=== PATIENT | male | born 1970 | race Caucasian/White ===

== ENCOUNTER 2018-02-22 23:12 | Emergency (ER) | payer MEDICARE, SELFPAY ==
[2018-02-22 23:13] VITALS: BP 143/72; PULSE 123; RESP 17; TEMP 37.5; O2SAT 94; BMI 26.8
--- NOTE | 2018-02-22 23:19 | ED.RN ---
RN CALLED FOR EKG, PULLED OLD EKG'S FOR
--- NOTE | 2018-02-22 23:29 | RAD_ITS ---
STUDY: X-RAY - ACUTE ABDOMINAL SERIES REASON FOR EXAM: Male, 47 years old. Abdominal pain. Chest pain. TECHNIQUE: Single view of the chest. Supine, 1 view(s) of the abdomen were obtained. COMPARISON: Chest x-ray 10/27/2017. CT scan abdomen and pelvis 05/19/2017. FINDINGS: The lungs are mildly underexpanded. There is relative elevation of right hemidiaphragm. There is no demonstrated pulmonary infiltrate. Normal size heart. Normal mediastinum and lety. Normal visualized pulmonary arteries. Normal visualized aortic arch and descending thoracic aorta. There is a non-specific bowel gas pattern. The soft tissue structures of the abdomen and pelvis are unremarkable. There are surgical clips overlying the left mid and upper abdomen. Normal visualized osseous structures. RAD/Acute Abdomen Inc Chest IMPRESSION: No evidence for acute cardiopulmonary pathology. Nonspecific bowel gas pattern. Electronically Signed: Dallas Green MD at 1:16 EDT , Service support ,
--- NOTE | 2018-02-22 23:31 | ED.DCSUM_ITS ---
- ER Visit Summary Date of Service: 02/22/18 Chief Complaint: [] Abdominal pain History of Present Illness: The patient is a 47 M patient stated that since noon after he ate lunch his abdomen feels full and distended. He started getting some pressure sensation in his abdomen since lunch. Sometimes he gets radiating pains from his abdomen upper nose chest. No significant chest pain by itself. It is more abdominal pain per patient. Relieved by nothing. No home treatment. No nausea vomiting. No diarrhea. Physical Examination: [] Vital signs reviewed General: Well-nourished well-developed Head: Normocephalic atraumatic Eyes: Pupils equal round and reactive to light extraocular movements intact ENT: TMs clear no hemotympanum no trauma Neck: Nontender full range of motion Cardiovascular: Regular tachycardia with normal rhythm no murmurs normal S1-S2 Respiratory: No distress clear to auscultation bilaterally chest nontender Abdomen: Soft nontender nondistended normal bowel sounds no masses Back: Nontender no CVA tenderness Extremities: Nontender active range of motion ?4 extremities no trauma Skin: Normal color no trauma Neuro alert oriented cranial nerves II through XII intact normal strength sensation reflexes Test Results: [] Emergency Department Course and Treatment: [] Given IV Zofran and morphine. Lab work and abdominal x-ray with chest x-ray obtained. CBC is normal except white count 22,000 without left shift. He has chronic leukocytosis. Prior numbers are 16,000, 20,000, 17,000. Chemistries normal except sodium 128 down from 144. Chloride 93. Creatinine 1.3. Liver function tests are normal except ALT of 63 AST is 79 alk phos of 164. These are chronically elevated. Lipase is 646. Troponin negative. Patient given IV morphine and Zofran with good relief of symptoms. His abdominal exam is benign. No tenderness over the pancreas. He drank 2 sodas. He accidentally pulled his IV out. He was given a soapsuds enema as he has not had a bowel movement for a week. His abdominal x -ray showed stool filled colon otherwise nothing acute. He had one loose bowel movement. He will be discharged with vital mag citrate. I do not think he has a pancreatitis. He is not double the value. He has no tenderness nausea or vomiting. I feel he can be discharged. Abdominal fullness I think he is having is secondary to constipation. He drinks 2 sodas in the department. He will continue drinking fluids. Treatment Plan: [] Disposition: [] Impression: [] Abdominal pain and fullness with constipation Chronic leukocytosis Dehydration This note was generated with [email or web address] dictation software. It may contain incorrect words, spelling, and punctuation that were not noted in review of the chart prior to signing ED Disposition - Plan for ED Patient: Chief Complaint: Chest Pain Referrals: Pavan Strauss MD [Primary Care Provider] -
[2018-02-22] MEDS: Morphine 4 MG/ML Syringe IV (23:40)
[2018-02-22] MEDS: Ondansetron 4 MG/2 ML Vial IV (23:40)
[2018-02-22 23:51] LABS: Absolute Lymphocyte Count 3.86 X10^3/ul (0.83-4.51); Basophil# 0.15 X10^3/uL; Basophil% 0.7 % (0-1); Eosinophil# 0.39 X10^3/uL; Eosinophils% 1.8 % (0-5); Hematocrit 46.4 % (40-54); Hemoglobin 16.1 g/dl (13.0-16.5); Lymphocyte # 3.86 X10^3/ul (4.0); Lymphocyte % 17.6 % (19-41); Mean Corp Hgb Conc 34.7 g/gl (32-36); Mean Corpuscular Volume 92.2 fL (80-94); Mean Platelet Vol. 12.9 fl (6.2-12.0); Monocyte% 11.4 % (0-10); Neutrophil # 15.01 X10^3/uL (2.7-7.7); Neutrophil % 68.3 % (47-70); Platelet Count 354 K/mm3 (150-450); RBC Distribution Width SD 49.5 fl (35.1-43.9); Red Blood Count 5.03 M/mm3 (4.6-6.2)
[2018-02-22 23:52] LABS: Differential Indicated SCAN CRITERIA MET; POSITIVE COUNT NO; POSITIVE DIFFERENTIAL YES; POSITIVE MORPHOLOGY YES
--- NOTE | 2018-02-23 00:19 | EKG12_ITS ---
Test Reason : CP Blood Pressure : / mmHG Vent. Rate : 113 BPM Atrial Rate : 113 BPM P-R Int : 156 ms QRS Dur : 084 ms QT Int : 332 ms P-R-T Axes : 051 -37 123 degrees QTc Int : 455 ms Sinus tachycardia Left axis deviation Left ventricular hypertrophy with repolarization abnormality Abnormal ECG Confirmed by FABIOLA ZHANG, JERMAIN ([id number]), tape editor MARJORIE DONNELLY ([id number]) on 02/26/2018 10:25:27 AM Referred By: ROMEL Confirmed By:JERMAIN HICKS MD
[2018-02-23 00:31] LABS: Anisocytosis RARE; Macrocytosis RARE; Platelet Estimate ADEQUATE (ADEQ); Platelet Morphology LARGE
[2018-02-23 01:13] VITALS: BP 97/76; PULSE 92; RESP 23; O2SAT 95
[2018-02-23 01:16] LABS: AST(SGOT) 79 U/L (15-37); Alanine Aminotransfer ALT/SGPT 63 U/L (16-61); Albumin, Serum 3.5 g/dL (3.2-5.0); Alkaline Phosphatase 164 U/L (45-117); Anion Gap 14 (5-15); BUN 9 mg/dL (7-18); BUN/Creat Ratio 6.5 RATIO (10-20); Chloride 93 mmol/L (98-107); Creatinine, Serum 1.38 mg/dL (0.70-1.30); EST Glomerular Filtration Rate 58 mL/min (>60); Est Glom Filt Rate - Afr Amer 71 mL/min (>60); Estimated Creatinine Clearance 59.07 ml/min; Globulin 5.6 g/dL (2.2-4.2); Glucose 333 mg/dL (74-106); Lipase 646 U/L (73-393); Protein, Total 9.1 g/dL (6.4-8.2); Sodium Level 128 mmol/L (136-145)
--- NOTE | 2018-02-23 02:35 | ED.DEP ---
ED Disposition - Plan for ED Patient: Disposition: Home or Assisted Living Chief Complaint: Chest Pain Instructions: Treating Constipation Referrals: Pavan Strauss MD [Primary Care Provider] -
[2018-02-23] MEDS: Magnesium Citrate 300 ML PO (02:43)
[2018-02-23 02:44] VITALS: BP 93/66; PULSE 82; RESP 16; O2SAT 96
[2018-02-23 12:58] LABS: Pathologist Review Reviewed
== END 2018-02-23 02:45 | disposition home or self-care (01) ==
PROVIDERS: Emergency Provider Emergency Medicine; Family Provider Family Medicine; PCP Family Medicine
DX: K59.00 Constipation, unspecified (principal); E86.0 Dehydration; D72.829 Elevated white blood cell count, unspecified; R10.9 Unspecified abdominal pain; I25.10 Atherosclerotic heart disease of native coronary artery without angina pectoris; I25.2 Old myocardial infarction; I10 Essential (primary) hypertension; E11.9 Type 2 diabetes mellitus without complications; E78.00 Pure hypercholesterolemia, unspecified; E03.9 Hypothyroidism, unspecified; G40.909 Epilepsy, unspecified, not intractable, without status epilepticus; J84.10 Pulmonary fibrosis, unspecified; Z79.82 Long term (current) use of aspirin; Z79.899 Other long term (current) drug therapy
CPT/HCPCS: 74022; 80048; 80076; 83690; 84484; 85025; 93005; 96374; 96375; 99285; A4216; J2405

== ENCOUNTER → 2018-08-20 13:10 | Outpatient (CLI) | payer MEDICARE, SELFPAY ==
--- NOTE | 2018-08-20 13:14 | RAD_ITS ---
HISTORY: LOW BACK PAIN, PT IN WHEEL CHAIR COMPARISON: None FINDINGS: XR Spine Lumbar 3 Views: Lumbar vertebra show normal height and alignment. No fracture or suspicious bony lesion. Disc space heights are preserved. Posterior elements appear intact. No spondylolisthesis. Atherosclerotic calcifications. Surgical clips within the midline and left upper quadrant abdomen. The SI joints appear preserved. RAD/Lumbar Spine 2 or 3 Views IMPRESSION: 1. Normal lumbar spine. 2. Atherosclerotic calcifications and previous abdominal surgery. at 0420 Reported and signed by: Reji Sanchez MD Electronically Signed: Reji Sanchez, at 4:18 EST Tel , Service support ,
--- NOTE | 2018-08-20 13:14 | RAD_ITS ---
HISTORY: LOW BACK PAIN, PT IN WHEEL CHAIR COMPARISON: None FINDINGS: XR Sacrum/Coccyx 3 views No fracture or suspicious lesion. The SI joints appear preserved. No bony erosions. Pelvic phleboliths. RAD/Sacrum-Coccyx min 2 Views IMPRESSION: Normal examination. No significant findings. at 0424 Reported and signed by: Reji Sanchez MD Electronically Signed: Reji Sanchez, at 4:21 EST Tel , Service support ,
== END ==
PROVIDERS: Family Provider Family Medicine; PCP Family Medicine; Referring Provider Anesthesiology; Visit Provider Anesthesiology
DX: M54.5 Low back pain (principal)
CPT/HCPCS: 72100; 72220

== ENCOUNTER → 2019-01-21 | Outpatient (CLI) | payer MEDICARE, SELFPAY ==
[2019-01-21 18:05] LABS: Amphetamine Urine VISTA NEGATIVE (<1000 ng/mL); Barbiturate Urine VISTA NEGATIVE (< 200 ng/mL); Benzodiazepine Urine VISTA NEGATIVE (< 200 ng/mL); Cocaine Urine VISTA NEGATIVE (< 300 ng/mL); Ecstacy Urine VISTA NEGATIVE (< 500 ng/mL); Methadone Urine VISTA NEGATIVE (< 300 ng/mL); PCP Urine VISTA NEGATIVE (< 25 ng/mL); THC Urine VISTA NEGATIVE (< 50 ng/mL); Vista UDS pH Range 5
== END | disposition home or self-care (01) ==
LOC: LAB 16:26
PROVIDERS: Family Provider Family Medicine; PCP Family Medicine; Referring Provider Anesthesiology; Visit Provider Anesthesiology
DX: F11.20 Opioid dependence, uncomplicated (principal)
CPT/HCPCS: 80307

== ENCOUNTER 2019-03-17 16:00 | Outpatient (RCR) | payer MEDICARE, SELFPAY ==
--- NOTE | 2019-02-10 13:07 | HP.PTEVAL ---
Patient's Visit Information SHAUN CASTILLO is a 48 year old M referred to Physical Therapy by Zurdo Sierra MD with a diagnosis of Neck pain/back pain. Date of Evaluation: 02/10/19 Physical Therapist: Babatunde Marlow DPT, OCS, CSCS - Visit Plan Frequency: 2x /Week Duration: 4-6 Weeks Plan: 2x/week for 4-6 for. gait training with AFO and quad cane, steps with R LE, postural strength and focus. - Subjective Findings: Sent for LBP and cervicalgia. Shaun says he has no LBP or neck pain. Sees Rigo for L foot pain from stroke in 2005. It is worsening lately. Does have L foot pain constantly since 2006 but feels more intense lately. No numbnes sor tingling. Pt is at a loss for why he is here for LBP or neck pain. May try very risky surgery but doesn't want to. L toes curl up and cramp and it stays that way. Hurts more when that happens. Had achilles tendon enghtening at one point and it has hurt since then. No exercises for legs, back or neck. Sleep is OK as far as foot goes, no back or neck pain. Does not walk, trasnfers through standing. Can walk with quad cane in R and assist and uses AFO. Does nto wear it alot because it hurts the foot. I called doctor office and they want us to work on posture and walking. Pt agreeable to walking adn posture. Distance at dad's house is 30 feet adn 4 steps. - Pain L foot Pain Intensity (Out of 10): 9 Pain Intensity Range: 8, 10 Comment: worse wehn cold. - Objective L arm and leg full of tone and hard to move. Needed assist geting brace on L hand as fingers stay closed adn wrist stays flexed. Max A. Did not bring AFO for L foot and scared to walk without it but encourasged into it. L ankel very stiff and full of tone as is HS and adductors. Neck has full ROM and no pain, spine moves well without pain. Posture is forward head and scap, corrected with VC. Trasnfer sit to stand I, Stand at quad cane mod I, L leg stuck straight . Walks with LBQC in R UE adn 30 feet very stiff L leg and hip hike to pull it through, no bend in L knee and no DF L ankle. Care needed without brace to ensure position of L ankle. Diminihsed sensation L ankle to light touch. R LE WFL and strength 4-/5. Tightness in HS. Stand to sit transfer mod I. and Mod I with using scooter for mobility today. 30 feet was about the limit ambulating due to nneding aassist aat end to progress L LE. - Goals Goal 1:: Walk 60 feet without fatigue or assist Goal Time Frame: 4-6 Weeks Goal 2:: Improved posture without cues to limit return of back pain. Goal Time Frame: 4-6 Weeks Goal 3:: Walk at dad's house adn 4 steps without difficulty SBA Goal Time Frame: 4-6 Weeks - Rehabilitation Potential Physical Therapy Diagnosis: diminished activitiy possibly leading to back pain, poorly managing mobility. Rehabilitation Potential: Fair - Anticipated Interventions Patient/Client Instruction: Educate patient on: Condition, Plan of Care For the Purpose of:: To increase tolerance to activity/condition/position Therapeutic Exercise to Include: Strength training, Gait and locomotor training For the Purpose of:: To improve muscle performance and motor function, To improve gait and locomotor functions Thank you for the opportunity to evaluate your patient. For Medicare and Medicare HMO plans, please review the plan of care and approve it. It will need to be FAXED BACK to us at [phone] for Medicare purposes. For Medicare only, by signing this I certify the plan of care. Please let me know if there are questions or concerns regarding this plan of care. Physician Signature: Date:
--- NOTE | 2019-03-17 16:21 | HP.PTDCSUM ---
HP - PT D/C Summary It has been my pleasure to treat SHAUN CASTILLO under orders from Zurdo Sierra MD, for the diagnosis of Neck pain/back pain for a total of 7 visit(s). Discharge Date: 03/17/19 Please see the following information for a summary of their discharge status. - Subjective Subjective: No back pain , No neck pain. Nobody at home to walk with so not doing much of that at home. - Pain L foot Pain Intensity (Out of 10): 0 - Objective Objective/Function: Walks with Min A for balance. L knee remains straight and swings out to side to get it through, cane In r UE. No reason or desire to do steps anymore. Pt thinks he can walk at home with the help of his mother on sidewalk instead of coming to PT. No back or neck pain anymore. DOING WELL, emphasized need to do some walking at home as safety and personnell allows, recommended mom and health aid as options. - Goals Goal 1:: Walk 60 feet without fatigue or assist Goal Progress: Goal Met, with Min A Goal 2:: Improved posture without cues to limit return of back pain. Goal Progress: Goal Met Goal 3:: Walk at dad's house adn 4 steps without difficulty SBA Goal Progress: could do it, he says! - Plan Plan: D/C - D/C Information If there are questions or concerns regarding this patient's physical therapy, please feel free to call me at [phone]. Thank you for the referral of this patient. Sincerely, Babatunde Marlow, DPT, OCS, CSCS
== END 2019-03-17 19:00 | disposition home or self-care (01) ==
LOC: PT 16:00
PROVIDERS: Family Provider Family Medicine; PCP Family Medicine; Referring Provider Anesthesiology; Visit Provider Anesthesiology
DX: M54.2 Cervicalgia (principal); M54.5 Low back pain
CPT/HCPCS: 97116; 97162